=== PATIENT | female | born 1965 | race African-American/Black ===

== ENCOUNTER 2016-12-02 18:58 | Emergency (ER) ==
[2016-12-02 19:23] VITALS: BP 123/70
[2016-12-02] MEDS ORDERED: PHENERGAN IM ONE (19:39)
[2016-12-02] MEDS ORDERED: NUBAIN IM ONE (19:39)
--- NOTE | 2016-12-02 19:44 | PROVIDER DOCUMENTATION ---
HPI-Headache - General Chief Complaint: Headache Stated Complaint: HEADACHE Time Seen by Provider: 12/02/16 19:28 Source: patient Allergies/Adverse Reactions: Patient Allergies Allergy/AdvReac Type Severity Reaction Status Date / Time ondansetron HCl * Allergy DIZZINESS Verified 08/01/14 12:57 [From Zofran (as hydrochloride)] prochlorperazine edisylate * Allergy Unknown Verified 08/01/14 12:57 [From Compazine] prochlorperazine maleate * Allergy Unknown Verified 08/01/14 12:57 [From Compazine] sumatriptan [From Imitrex] Allergy SHORTNESS Verified 08/01/14 13:22 OF BREATH sumatriptan succinate * Allergy SHORTNESS Verified 08/01/14 13:22 [From Imitrex] OF BREATH Home Medications: Duloxetine [Cymbalta] 90 mg PO DAILY 06/22/14 Loratadine [Claritin] 10 mg PO DAILY 06/22/14 Metformin [Glucophage] 500 mg PO DAILY 06/22/14 Topiramate [Topamax] 100 mg PO BID 06/22/14 - History of Present Illness-Headache Nature of Presenting Problem: 51 yo F presents to the ER with complaint of a L sided migraine since 10 this morning. Pt has a hx of migraines and states this feels like a typical one. Pt had no relief from her normal medicines and nasal spray. Pt states she is nauseous but denies fever. Headache Location: reports: frontal Quality of Pain: reports: aching Severity: reports: mild Onset/Duration: reports: this morning Timing: reports: still present Headache Context: reports: nothing Headache History: reports: history of migraines Any recent trauma/injury?: reports: none Headache Exacerbated by:: reports: light Associated Symptoms: reports: nausea Review of Systems - Adult - REVIEW OF SYSTEMS - ADULT Constitutional: denies: chills, fever Eyes: reports: no symptoms reported Ears, Nose, Mouth & Throat: reports: no symptoms reported Cardiovascular: denies: chest pain, palpitations Respiratory: reports: no symptoms reported Gastrointestinal: reports: nausea. denies: abdominal pain, diarrhea, vomiting Genitourinary: reports: no symptoms reported Musculoskeletal: reports: no symptoms reported Integumentary: reports: no symptoms reported Neurological: reports: headache/migraines Psychiatric: reports: no symptoms reported Endocrine: reports: no symptoms reported Hematologic/Lymphatic: reports: no symptoms reported Allergic/Immunologic: reports: no symptoms reported All Other Systems: Reviewed and Negative Past History - Adult - PAST MEDICAL HISTORY-ADULT Review of Records: reports: Old Records Reviewed, Nursing Assessment Review, Medications Reviewed Neurological: reports: headaches/migraines Endocrine/Immune: reports: Diabetes Other Conditions: reports: denies history - PRIOR SURGERIES/PROCEDURES Surgical/Procedure History: reports: none - IMMUNIZATION STATUS Childhood Immunizations: See Nurse Assessment Flu Vaccine: See Nurse Assessment - FAMILY HISTORY Family History: reviewed, not pertinent Physical Exam- Neurological - Physical Exam-Neuro Initial Vital Signs Reviewed: Yes General Appearance: appears well, alert, no apparent distress HENMT: normocephalic/atraumatic, moist mucous membranes Neck: non-tender, full range of motion Respiratory: chest non-tender, lungs clear Cardiovascular: normal peripheral pulses Lymphatic: no adenopathy 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, 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 Exam: normal hearing, normal speech Coordination/Gait: normal gait Motor/Sensory: no motor deficit, no sensory deficit Progress - PLAN OF CARE/RESULTS Progress/Plan/Lab Results: Orders Category Date Time Status Nalbuphine [Nubain] Med 12/02/16 19:39 Discontinued 20 mg IM NOW ONE Promethazine [Phenergan] Med 12/02/16 19:39 Discontinued 25 mg IM NOW ONE Vital Signs Temp Pulse Resp BP Pulse Ox 12/02/16 19:18 98.5 F 97 H 18 123/70 100 ondansetron HCl * [From Zofran (as hydrochloride)] Allergy (Verified 08/01/14 12 :57) DIZZINESS prochlorperazine edisylate * [From Compazine] Allergy (Verified 08/01/14 12:57) Unknown prochlorperazine maleate * [From Compazine] Allergy (Verified 08/01/14 12:57) Unknown sumatriptan [From Imitrex] Allergy (Verified 08/01/14 13:22) SHORTNESS OF BREATH sumatriptan succinate * [From Imitrex] Allergy (Verified 08/01/14 13:22) SHORTNESS OF BREATH Duloxetine [Cymbalta] 90 mg PO DAILY 06/22/14 Loratadine [Claritin] 10 mg PO DAILY 06/22/14 Metformin [Glucophage] 500 mg PO DAILY 06/22/14 Topiramate [Topamax] 100 mg PO BID 06/22/14 Departure - Departure Time of Disposition Order: 20:29 DIAGNOSIS: Chronic Headache Disposition: HOME 01 Certified Medical Emergency: Emergent Condition: Good Additional Instructions: ED Follow Up Instructions: You have been treated by a care provider in the Emergency Department. These instructions are being provided to you so you can have an understanding of how to care for yourself upon discharge. Upon discharge from the Emergency Department, you are responsible for making arrangements for follow-up care by a physician of your choice. Take all prescribed medications as directed. Return to the Emergency Department immediately for any new or worsening symptoms. You may call the Physician Referral phone number at [phone] to obtain a list of Physicians who are taking new patients. Referrals: Ozzie Pyle [Primary Care Provider] - Forms: Return to School/Parent Work Instructions: Migraine Headache, [id number] Attestation - Scribe Verification/Attestation Scribe:: Nawaf Murillo Acting as Scribe for:: John Montero Scribe documention review:: This chart was documented by a scribe and accurately reflects the service the provider performed and the decisions made by the provider.
== END 2016-12-02 19:59 | disposition home or self-care (01) ==
LOC: P.ED 18:58
DX: R51 Headache (principal); G89.29 Other chronic pain; R11.0 Nausea; E11.9 Type 2 diabetes mellitus without complications; Z79.899 Other long term (current) drug therapy
CPT/HCPCS: 96372; J2300; J2550

== ENCOUNTER 2016-12-07 03:14 | Emergency (ER) ==
--- NOTE | 2016-12-07 04:02 | PROVIDER DOCUMENTATION ---
HPI-Headache - General Chief Complaint: Headache Stated Complaint: MIGRAINE Time Seen by Provider: 12/07/16 03:42 Source: patient Allergies/Adverse Reactions: Patient Allergies Allergy/AdvReac Type Severity Reaction Status Date / Time ondansetron HCl * Allergy DIZZINESS Verified 08/01/14 12:57 [From Zofran (as hydrochloride)] prochlorperazine edisylate * Allergy Unknown Verified 08/01/14 12:57 [From Compazine] prochlorperazine maleate * Allergy Unknown Verified 08/01/14 12:57 [From Compazine] sumatriptan [From Imitrex] Allergy SHORTNESS Verified 08/01/14 13:22 OF BREATH sumatriptan succinate * Allergy SHORTNESS Verified 08/01/14 13:22 [From Imitrex] OF BREATH Home Medications: Duloxetine [Cymbalta] 90 mg PO DAILY 06/22/14 Loratadine [Claritin] 10 mg PO DAILY 06/22/14 Metformin [Glucophage] 500 mg PO DAILY 06/22/14 Topiramate [Topamax] 100 mg PO BID 06/22/14 - History of Present Illness-Headache Headache Location: reports: frontal Quality of Pain: reports: throbbing Severity: reports: severe Onset/Duration: reports: last week Timing: reports: still present Headache History: reports: chronic headaches (ASSOCIATED WITH PERIODS) Headache severity at the maximum: severe Preceding Symptoms: denies: visual disturbances, scotoma, aura(s), typical of previous aura(s), none Headache Exacerbated by:: reports: light, noise Modifying Factors: improves with: analgesics, movement Associated Symptoms: reports: nausea Similar Symptoms Previously?: Yes Recently seen or treated by another doctor?: Yes (ER NOW 4TH TIME IN 10 DAYS) Review of Systems - Adult - REVIEW OF SYSTEMS - ADULT Constitutional: reports: no symptoms reported Eyes: reports: no symptoms reported Ears, Nose, Mouth & Throat: reports: no symptoms reported Cardiovascular: reports: no symptoms reported Respiratory: reports: no symptoms reported Gastrointestinal: reports: nausea Genitourinary: reports: other (IRREGULAR PERIOD/ DYSMENORRHEA) Musculoskeletal: reports: no symptoms reported Integumentary: reports: no symptoms reported Neurological: reports: headache/migraines Psychiatric: reports: no symptoms reported Endocrine: reports: no symptoms reported Hematologic/Lymphatic: reports: no symptoms reported Allergic/Immunologic: reports: no symptoms reported All Other Systems: Reviewed and Negative Past History - Adult - PAST MEDICAL HISTORY-ADULT Review of Records: reports: Old Records Reviewed, Nursing Assessment Review, Medications Reviewed, Social history reviewed & non-contributory. Major Childhood Illnesses: reports: denies history Cardiovascular: reports: denies history Respiratory: reports: denies history Gastrointestinal: reports: denies history Obstetrical/Gynecological: reports: denies history Genitourinary: reports: denies history Musculoskeletal: reports: denies history Neurological: reports: headaches/migraines Psychiatric: reports: denies history Endocrine/Immune: reports: Diabetes Other Conditions: reports: denies history - PRIOR SURGERIES/PROCEDURES Surgical/Procedure History: reports: none - IMMUNIZATION STATUS Childhood Immunizations: See Nurse Assessment Flu Vaccine: See Nurse Assessment - FAMILY HISTORY Family History: reviewed, not pertinent - SOCIAL HISTORY Smoking: non-smoker Substance Use: none/never Alcohol Use Frequency: occasionally Physical Exam- Neurological - Physical Exam-Neuro Initial Vital Signs Reviewed: Yes General Appearance: alert, moderate distress Eye Exam: bilateral eye: normal inspection, PERRL, EOMI HENMT: normocephalic/atraumatic, normal ENT inspection, TMs normal, pharynx normal Head Injury: no evidence of injury Neck: non-tender, full range of motion, supple, normal inspection Respiratory: chest non-tender, lungs clear, normal breath sounds, no pleuratic chest pain, no respiratory distress, no accessory muscle use Cardiovascular: normal peripheral pulses, regular rate, rhythm, no edema, no gallop, no JVD, no murmur Abdominal Exam: normal bowel sounds, non tender, soft, no organomegaly, no pulsatile mass Lymphatic: no adenopathy 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, non-tender, normal gait, normal inspection, no pedal edema, no calf tenderness, normal capillary refill, 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 Exam: normal hearing, normal speech, PERRL Coordination/Gait: normal finger to nose, normal gait, negative Romberg's sign Motor/Sensory: no motor deficit, no sensory deficit, no pronator drift, negative Babinski's sign Neurologic: inorganic 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 teacher II-XII nml as tested, no motor/sensory deficits Integumentary: normal color, normal turgor, warm/dry Psych/Mental Status: AL, normal mood/affect, normal thought content, normal thought process, oriented x 3 Departure - Departure Time of Disposition Order: 04:06 DIAGNOSIS: Migraine aura, persistent Qualifiers: Status migrainosus presence: with status migrainosus Intractability: intractable Qualified Code(s): G43.511 - Persistent migraine aura without cerebral infarction, intractable, with status migrainosus Disposition: HOME 01 Certified Medical Emergency: Emergent Condition: Fair Prescriptions: Rizatriptan Benzoate [Maxalt] 10 mg PO DAILY PRN PRN #3 tablet PRN Reason: Headache Metoclopramide [Reglan] 10 mg PO Q6HR #30 tablet Forms: Return to School/Parent Work
[2016-12-07] MEDS ORDERED: STADOL IM ONE (04:09)
[2016-12-07] MEDS ORDERED: PHENERGAN PO ONE (04:09)
[2016-12-07] MEDS ORDERED: TORADOL IM ONE (04:09)
[2016-12-07 04:44] VITALS: BP 132/79
== END 2016-12-07 04:51 | disposition home or self-care (01) ==
LOC: P.ED 03:14
DX: G43.511 Persistent migraine aura without cerebral infarction, intractable, with status migrainosus (principal); R51 Headache; R11.0 Nausea; N94.6 Dysmenorrhea, unspecified; N92.6 Irregular menstruation, unspecified; E11.9 Type 2 diabetes mellitus without complications; G89.29 Other chronic pain; Z79.899 Other long term (current) drug therapy
CPT/HCPCS: 96372; J0595; J1885